=== PATIENT | male | born 2000 ===

== ENCOUNTER 2024-01-16 15:11 | Emergency (ER) | payer OTHER ==
[~2024-01-16] VITALS: Ht 167.6 cm; Wt 77.3 kg
[2024-01-16 15:15] VITALS: TEMP 98
[2024-01-16 17:10] VITALS: BP 115/69; PULSE 75; RESP 15
== END 2024-01-16 17:18 | disposition home or self-care (01) ==
LOC: EMS 16:29
DX: S91.201A Unspecified open wound of right great toe with damage to nail, initial encounter (principal); M25.512 Pain in left shoulder; W20.8XXA Other cause of strike by thrown, projected or falling object, initial encounter; Y93.89 Activity, other specified; Y92.89 Other specified places as the place of occurrence of the external cause; Y99.8 Other external cause status
CPT/HCPCS: 99284; 73030-TC; 73630-TC; Z7502